=== PATIENT | male | born 1945 | race Caucasian/White ===

== ENCOUNTER 2020-09-25 23:04 | Emergency (ER) | payer MEDICAID, OTHER ==
[~2020-09-25] VITALS: Ht 182.9 cm; Wt 84.6 kg
[2020-09-25 23:21] LABS: BASOPHILS % (AUTO) 1 % (0-1); EOSINOPHILS % (AUTO) 0 % (1-7); LYMPHOCYTES % (AUTO) 13 % (22-44); MEAN CORPUSCULAR HEMOGLOBIN 30.1 pg (27.5-34.5); MEAN CORPUSCULAR HGB CONC 34.3 g/dL (33.2-36.2); MEAN PLATELET VOLUME 7.3 fL (7.4-10.4); MONOCYTES % (AUTO) 10 % (2-9); NEUTROPHILS % (AUTO) 76 % (42-75); PLATELET COUNT 284 x10^3/uL (130-400); RED BLOOD COUNT 4.75 x10^6/uL (4.38-5.82)
[2020-09-25 23:28] LABS: MD NO
[2020-09-25] MEDS ORDERED: LIDOCAINE 2%,20 ML JEL.PF.APP MM ONE (23:30)
[2020-09-25 23:33] LABS: ALANINE AMINOTRANSFERASE 37 U/L (12-78); ALBUMIN 3.8 g/dL (3.4-5.0); ANION GAP 9 mmol/L (5-15); CALCIUM 8.8 mg/dL (8.5-10.1); CHLORIDE 106 mmol/L (98-107); CREATININE 1.98 mg/dL (0.7-1.3)
[2020-09-25 23:35] LABS: ALKALINE PHOSPHATASE 72 U/L (45-117); TOTAL PROTEIN 7.5 g/dL (6.4-8.2)
--- NOTE | 2020-09-25 23:37 | NUR ---
PT. TO ED FROM HALF-WAY FOR C/O ABD PAIN. PT. REPORTS HE HAD BEST PLACED 4 DAYS AGO AND A PROSTATE BIOPSY 2 DAYS AGO AND BEST WAS REMOVED. PT. REPORTS SINCE REMOVAL OF BEST HAS HAD ABD PAIN AND DISTENSION. PT. REPORTS FREQUENCY WITH URINATION AND ONLY VOIDING TINY AMOUNT(ABOUT 50ML OF URINE ON ARRIVAL TO ED. BLADDER SCAN SHOWED >849; BEST PLACED WITH EASE PER MD ORDER. PT. TOLERATED WELL. IMMEDIATE RETURN OF 850ML OF DARK YELLOW CLOUDY URINE. PT. REPORTED IMMEDIATE RELIEF FROM ABD PAIN AFTER BEST PLACEMENT. OFFICER AT BS. PT. DENIES NEEDS AT THIS TIME.
[2020-09-26 00:03] LABS: MICROSCOPIC AUTO
[2020-09-26 00:44] VITALS: BP 114/78
== END 2020-09-26 00:54 | disposition home or self-care (01) ==
LOC: ED 09-26 00:21
DX: N40.1 Benign prostatic hyperplasia with lower urinary tract symptoms (principal); R33.9 Retention of urine, unspecified; N28.9 Disorder of kidney and ureter, unspecified; I10 Essential (primary) hypertension
CPT/HCPCS: 36415; 51702; 80053; 81001; 83690; 85025; 99284

== ENCOUNTER → 2020-10-12 | Outpatient (CLI) | payer OTHER | END | disposition home or self-care (01) | LOC: RAD 10:19 | PROVIDERS: ATTEND Urology | DX: C61 Malignant neoplasm of prostate (principal); N13.30 Unspecified hydronephrosis; N13.4 Hydroureter | CPT/HCPCS: 78306; A9503 ==

== ENCOUNTER 2021-01-17 09:28 | Outpatient (CLI) | payer OTHER ==
[2021-01-17] MEDS ORDERED: OMNIPAQUE 350 MG/ML, 100ML BOTTLE ONE (10:32)
== END 2021-01-17 23:59 | disposition home or self-care (01) ==
LOC: RAD 09:28
PROVIDERS: ATTEND Nurse Practitioner Family
DX: C61 Malignant neoplasm of prostate (principal); K80.20 Calculus of gallbladder without cholecystitis without obstruction; N28.1 Cyst of kidney, acquired; M51.36 Other intervertebral disc degeneration, lumbar region; I70.0 Atherosclerosis of aorta; N40.0 Benign prostatic hyperplasia without lower urinary tract symptoms
CPT/HCPCS: 74177; Q9967